=== PATIENT | female | born 2000 | race Caucasian/White ===

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

== ENCOUNTER 2021-08-15 21:40 | Emergency (ER) | payer BC, OTHER ==
[~2021-08-15] VITALS: Ht 157.5 cm; Wt 108.9 kg
[2021-08-15 22:12] VITALS: BP 178/104
[2021-08-15 23:45] LABS: APPEARANCE,URINE CLEAR (CLEAR); BILIRUBIN,URINE NEGATIVE (NEGATIVE); BLOOD, URINE NEGATIVE (NEGATIVE); COLOR,URINE YELLOW (YELLOW); LEUKOCYTE ESTERASE ,URINE NEGATIVE (NEGATIVE); NITRITE, URINE NEGATIVE (NEGATIVE); UGLUCOSE NEGATIVE (NEGATIVE)
[2021-08-16 00:14] LABS: RBC,URINE 0-5 /HPF (0-5); WBC,URINE 0-5 /HPF (0-5)
[2021-08-16] MEDS ORDERED: KETOROLAC 30 MG/ML VIAL IM ONE (01:10)
[2021-08-16] MEDS ORDERED: BEN10 PO (04:44)
[2021-08-16 04:57] VITALS: BP 120/65
== END 2021-08-16 04:57 | disposition left against medical advice (07) ==
LOC: MED 21:40
DX: R10.9 Unspecified abdominal pain (principal); M54.9 Dorsalgia, unspecified; Z79.899 Other long term (current) drug therapy
CPT/HCPCS: 74176; 81001; 81025; 96372; 99284; J1885